=== PATIENT | male | born 1975 | race African-American/Black ===

== ENCOUNTER 2020-03-13 05:10 | Inpatient (IN) ==
[2020-03-13 06:25] LABS: Basophils % 0.5 % (0.0-0.8); Eosinophils # 0.1 10*3/uL (0.0-0.87); Eosinophils % 1.4 % (0.00-10.9); Hemoglobin 11.4 GM/DL (14.0-18.0); Immature Granulocytes % 0.3 %; Immature Granulocytes Absolute 0.02 #; Lymphocytes # 2.2 10*3/uL (1.4-4.0); Lymphocytes % 33.8 % (21.2-54.2); Mean Corpuscular HGB Conc 32.6 GM/DL (32-36); Mean Corpuscular Volume 76.3 FL (87-102); Mean Platelet Volume 8.4 FL (9.6-12.0); Monocytes % 10.2 % (1.7-12.7); Neutrophils % 53.8 % (38.7-73.9); Platelet Count 443 T/CUMM (130-400); Red Blood Count 4.59 MC/CUMM (3.8-5.5); Red Cell Distribution Width 13.2 % (9.3-17.3); White Blood Count 6.5 T/CUMM (4-12)
[2020-03-13] MEDS ORDERED: INSULIN REGULAR 100 UNIT/ML IV ONE ×2 (06:28→06:38)
[2020-03-13] MEDS ORDERED: CLINDAMYCIN INJ 600 MG in PREMIX 1 EACH IV ONE (06:30)
[2020-03-13] MEDS ORDERED: BUPIVACAINE MPF 0.25% 30 ML VIAL ONE (06:39)
[2020-03-13] MEDS ORDERED: LIDOCAINE 1%/EPI INJ 20 ML VIAL ONE (06:39)
[2020-03-13] MEDS: LACTATED RINGERS 1,000 ML IV SCH ×2 (06:45→08:17)
[2020-03-13] MEDS ORDERED: CLINDAMYCIN INJ 50 ML IV ONE (06:53)
[2020-03-13 06:54] LABS: Alanine Aminotransferase 12 U/L (16-61); Albumin 2.5 G/DL (3.4-5.0); Alkaline Phosphatase 112 U/L (45-117); Aspartate Amino Transferase 6 U/L (0-37); Bilirubin,Total < 0.39 MG/DL (0.2-1.0); Blood Urea Nitrogen 21 MG/DL (7-18); Calcium 9.7 MG/DL (8.5-10.1); Estimated Glom Filtration Rate 109 ML/MIN; Glucose 397 MG/DL (74-106); Osmolality,Calculated 283.5 MOS/KG (273-304); Total Protein 8.3 G/DL (6.4-8.3)
[2020-03-13] MEDS ORDERED: LIDOCAINE 1% 20 ML VIAL ONE (06:55)
[2020-03-13] MEDS ORDERED: INSULIN REGULAR 100 UNIT/ML ONE (06:56)
[2020-03-13] MEDS ORDERED: MIDAZOLAM 2 MG/2 ML VIAL ONE (08:46)
[2020-03-13] MEDS ORDERED: SEVOFLURANE 1 UNIT/15 MINUTE INH ONE (08:46)
[2020-03-13] MEDS ORDERED: LIDOCAINE 2% 5 ML VIAL ONE (08:46)
[2020-03-13] MEDS ORDERED: propofoL 200 MG/20 ML VIAL IV ONE (08:46)
[2020-03-13] MEDS ORDERED: fentaNYL 100 MCG/2 ML VIAL ONE (08:46)
[2020-03-13] MEDS ORDERED: PHENYLEPHRINE 1 MG/10 ML SYRINGE IV ONE (08:47)
[2020-03-13] MEDS ORDERED: ONDANSETRON 4 MG/2 ML VIAL ONE (08:47)
[2020-03-13] MEDS ORDERED: GLUCAGON 1 MG VIAL IM PRN (09:35)
[2020-03-13] MEDS ORDERED: ALBUTEROL/IPRATROPIUM 3 ML NEB RESP TX PRN (09:35)
[2020-03-13] MEDS ORDERED: DEXTROSE 10% 250 ML BAG IV PRN (09:35)
[2020-03-13] MEDS ORDERED: ACETAMINOPHEN 325 MG TABLET PO PRN (09:35)
[2020-03-13] MEDS ORDERED: BISACODYL 5 MG TABLET PO PRN (09:35)
[2020-03-13] MEDS: SODIUM CHLORIDE 0.9% 1,000 ML IV SCH ×2 (11:26→18:36)
[2020-03-13] MEDS: PIPERACILLIN/TAZOBACTAM 3,375 MG in SODIUM CHLORIDE 0.9% 100 ML IV SCH ×2 (11:26→18:35)
[2020-03-13] MEDS ORDERED: INSULIN LISPRO 100 UNIT/ML SUBCUT SCH ×2 (12:00→17:00)
[2020-03-13] MEDS: INSULIN LISPRO 100 UNIT/ML SUBCUT SCH ×2 (17:32→20:59)
[2020-03-13] MEDS: metFORMIN 500 MG TABLET PO SCH (17:34)
[2020-03-13] MEDS: GABAPENTIN 300 MG CAPSULE PO SCH (20:58)
[2020-03-13] MEDS ORDERED: INSULIN GLARGINE 100 UNIT/ML SUBCUT SCH ×2 (21:00)
[2020-03-14] MEDS: PIPERACILLIN/TAZOBACTAM 3,375 MG in SODIUM CHLORIDE 0.9% 100 ML IV SCH ×3 (03:08→17:58)
[2020-03-14] MEDS: ENOXAPARIN 40 MG/0.4 ML SYRINGE SUBCUT SCH (03:40)
[2020-03-14] MEDS: SODIUM CHLORIDE 0.9% 1,000 ML IV SCH ×2 (04:56→19:31)
[2020-03-14 05:35] LABS: Basophils % 0.4 % (0.0-0.8); Eosinophils # 0.1 10*3/uL (0.0-0.87); Eosinophils % 1.2 % (0.00-10.9); Hematocrit 30.8 VOL% (42.0-52.0); Hemoglobin 9.8 GM/DL (14.0-18.0); Immature Granulocytes % 0.1 %; Immature Granulocytes Absolute 0.01 #; Lymphocytes # 2.5 10*3/uL (1.4-4.0); Lymphocytes % 32.5 % (21.2-54.2); Mean Corpuscular HGB Conc 31.8 GM/DL (32-36); Mean Corpuscular Volume 78.8 FL (87-102); Mean Platelet Volume 8.6 FL (9.6-12.0); Monocytes % 11.9 % (1.7-12.7); Neutrophils % 53.9 % (38.7-73.9); Platelet Count 421 T/CUMM (130-400); Red Blood Count 3.91 MC/CUMM (3.8-5.5); Red Cell Distribution Width 13.4 % (9.3-17.3); White Blood Count 7.8 T/CUMM (4-12)
[2020-03-14 05:54] LABS: Calcium 8.8 MG/DL (8.5-10.1); Osmolality,Calculated 281.8 MOS/KG (273-304)
[2020-03-14] MEDS: MINOCYCLINE 100 MG CAPSULE PO SCH ×2 (08:09→10:27)
[2020-03-14] MEDS: HYDROmorphone 2 MG/1 ML VIAL IV PRN ×2 (08:57→19:47)
[2020-03-14] MEDS: INSULIN LISPRO 100 UNIT/ML SUBCUT SCH ×5 (08:58→21:48)
[2020-03-14] MEDS: LISINOPRIL/HCTZ 20-25 MG TABLET PO SCH (08:59)
[2020-03-14] MEDS: METOPROLOL SUCCINATE XL 50 MG TABLET PO SCH (08:59)
[2020-03-14] MEDS: PANTOPRAZOLE 40 MG TABLET PO SCH (08:59)
[2020-03-14] MEDS: ASPIRIN 325 MG TABLET PO SCH (08:59)
[2020-03-14] MEDS: metFORMIN 500 MG TABLET PO SCH ×2 (08:59→17:57)
[2020-03-14] MEDS: GABAPENTIN 300 MG CAPSULE PO SCH ×2 (08:59→21:38)
[2020-03-14] MEDS: amLODIPine 10 MG TABLET PO SCH (08:59)
[2020-03-14] MEDS: DULoxetine 30 MG CAPSULE PO SCH (08:59)
[2020-03-14] MEDS: SODIUM HYPOCHLORITE 0.25% IRRIG 473 ML BOTTLE TOP SCH (09:00)
[2020-03-14] MEDS: ONDANSETRON 4 MG/2 ML VIAL IV PRN ×3 (11:41→19:47)
[2020-03-14] MEDS ORDERED: DEXTROSE 10% 250 ML BAG IV PRN (14:02)
[2020-03-14] MEDS: INSULIN GLARGINE 100 UNIT/ML SUBCUT SCH (21:49)
[2020-03-15] MEDS: INSULIN LISPRO 100 UNIT/ML SUBCUT SCH ×9 (00:42→21:51)
[2020-03-15] MEDS: MINOCYCLINE 100 MG CAPSULE PO SCH ×3 (00:43→21:51)
[2020-03-15] MEDS: PIPERACILLIN/TAZOBACTAM 3,375 MG in SODIUM CHLORIDE 0.9% 100 ML IV SCH ×3 (03:32→18:10)
[2020-03-15] MEDS: ENOXAPARIN 40 MG/0.4 ML SYRINGE SUBCUT SCH (05:14)
[2020-03-15] MEDS: GABAPENTIN 300 MG CAPSULE PO SCH ×2 (08:41→20:47)
[2020-03-15] MEDS: METOPROLOL SUCCINATE XL 50 MG TABLET PO SCH (08:41)
[2020-03-15] MEDS: DULoxetine 30 MG CAPSULE PO SCH (08:41)
[2020-03-15] MEDS: PANTOPRAZOLE 40 MG TABLET PO SCH (08:42)
[2020-03-15] MEDS: metFORMIN 500 MG TABLET PO SCH ×2 (08:42→18:10)
[2020-03-15] MEDS: LISINOPRIL/HCTZ 20-25 MG TABLET PO SCH (08:42)
[2020-03-15] MEDS: amLODIPine 10 MG TABLET PO SCH (08:42)
[2020-03-15] MEDS: HYDROmorphone 2 MG/1 ML VIAL IV PRN ×2 (08:46→20:44)
[2020-03-15] MEDS: ONDANSETRON 4 MG/2 ML VIAL IV PRN ×2 (08:46→18:15)
[2020-03-15] MEDS: SODIUM HYPOCHLORITE 0.25% IRRIG 473 ML BOTTLE TOP SCH (08:48)
[2020-03-15] MEDS: ASPIRIN 325 MG TABLET PO SCH (08:48)
[2020-03-15] MEDS: sitaGLIPtin 25 MG TABLET PO SCH (08:54)
[2020-03-15] MEDS ORDERED: glyBURIDE 5 MG TABLET PO SCH (17:00)
[2020-03-15] MEDS: glyBURIDE 5 MG TABLET PO SCH (18:10)
[2020-03-15] MEDS: INSULIN GLARGINE 100 UNIT/ML SUBCUT SCH (20:48)
[2020-03-16] MEDS: PIPERACILLIN/TAZOBACTAM 3,375 MG in SODIUM CHLORIDE 0.9% 100 ML IV SCH ×2 (02:47→11:19)
[2020-03-16] MEDS: ENOXAPARIN 40 MG/0.4 ML SYRINGE SUBCUT SCH (03:45)
[2020-03-16 05:18] LABS: Calcium 8.9 MG/DL (8.5-10.1); Osmolality,Calculated 273.8 MOS/KG (273-304)
[2020-03-16] MEDS ORDERED: MAGNESIUM SULF RIDER 4 GM in PREMIX 1 EACH IV ONE (07:21)
[2020-03-16] MEDS: INSULIN LISPRO 100 UNIT/ML SUBCUT SCH ×4 (08:38→12:21)
[2020-03-16] MEDS: GABAPENTIN 300 MG CAPSULE PO SCH (08:49)
[2020-03-16] MEDS: LISINOPRIL/HCTZ 20-25 MG TABLET PO SCH (08:49)
[2020-03-16] MEDS: DULoxetine 30 MG CAPSULE PO SCH (08:49)
[2020-03-16] MEDS: PANTOPRAZOLE 40 MG TABLET PO SCH (08:50)
[2020-03-16] MEDS: metFORMIN 500 MG TABLET PO SCH (08:50)
[2020-03-16] MEDS: METOPROLOL SUCCINATE XL 50 MG TABLET PO SCH (08:50)
[2020-03-16] MEDS: glyBURIDE 5 MG TABLET PO SCH (08:50)
[2020-03-16] MEDS: amLODIPine 10 MG TABLET PO SCH (08:50)
[2020-03-16] MEDS: ASPIRIN 325 MG TABLET PO SCH (08:50)
[2020-03-16] MEDS: sitaGLIPtin 25 MG TABLET PO SCH (08:50)
[2020-03-16] MEDS: MINOCYCLINE 100 MG CAPSULE PO SCH (08:51)
[2020-03-16] MEDS: SODIUM HYPOCHLORITE 0.25% IRRIG 473 ML BOTTLE TOP SCH (08:59)
[2020-03-16] MEDS ORDERED: MAGNESIUM OXIDE 400 MG TABLET PO SCH (09:00)
[2020-03-16 12:19] VITALS: BP 99/62
== END 2020-03-16 13:26 | disposition home health service (06) | DRG 617 ==
LOC: N.OR 05:10 → N.SDSINP 06:14 → N.3E 09:18
PROVIDERS: ADMIT Surgery; ATTEND Surgery

== ENCOUNTER 2022-06-15 09:30 | Inpatient (IN) ==
[2022-06-15] MEDS ORDERED: VANCOMYCIN INJ 1,750 MG in SODIUM CHLORIDE 0.9% 250 ML IV STA (10:04)
[2022-06-15] MEDS ORDERED: VANCOMYCIN INJ 1,750 MG in SODIUM CHLORIDE 0.9% 500 ML IV STA (10:10)
[2022-06-15 10:30] LABS: Basophils % 0.5 % (0.0-0.8); Eosinophils # 0.3 10*3/uL (0.0-0.87); Eosinophils % 3.4 % (0.00-10.9); Hematocrit 31.9 VOL% (42.0-52.0); Hemoglobin 9.8 GM/DL (14.0-18.0); Immature Granulocytes % 0.4 %; Immature Granulocytes Absolute 0.03 #; Lymphocytes # 1.8 10*3/uL (1.4-4.0); Lymphocytes % 22.9 % (21.2-54.2); Mean Corpuscular HGB Conc 30.7 GM/DL (32-36); Mean Corpuscular Volume 75.2 FL (87-102); Mean Platelet Volume 8.4 FL (9.6-12.0); Monocytes # 0.8 10*3/uL (0.11-0.8); Monocytes % 10.1 % (1.7-12.7); Neutrophils % 62.7 % (38.7-73.9); Platelet Count 489 T/CUMM (130-400); Red Blood Count 4.24 MC/CUMM (3.8-5.5); Red Cell Distribution Width 14.6 % (9.3-17.3)
[2022-06-15 11:13] LABS: Alanine Aminotransferase 14 U/L (16-61); Albumin 2.3 G/DL (3.4-5.0); Alkaline Phosphatase 69 U/L (45-117); Aspartate Amino Transferase 16 U/L (0-37); Bilirubin,Total < 0.39 MG/DL (0.20-1.00); Blood Urea Nitrogen 34 MG/DL (7-18); Calcium 9.2 MG/DL (8.5-10.1); Carbon Dioxide 26 MMOL/L (21-32); Chloride 110 MMOL/L (98-107); Glucose 123 MG/DL (74-106); Osmolality,Calculated 285.5 MOS/KG (273-304); Potassium 4.6 MMOL/L (3.5-5.1); Sodium 139 MMOL/L (136-145); Total Protein 8.1 G/DL (6.4-8.2)
[2022-06-15] MEDS ORDERED: ONDANSETRON 4 MG/2 ML VIAL IV PRN (11:57)
[2022-06-15] MEDS ORDERED: ACETAMINOPHEN 325 MG TABLET PO PRN (11:57)
[2022-06-15] MEDS ORDERED: GLUCAGON 1 MG VIAL IM PRN ×2 (11:57→13:27)
[2022-06-15] MEDS ORDERED: DEXTROSE 10% 250 ML BAG IV PRN (12:00)
[2022-06-15] MEDS: LACTATED RINGERS 1,000 ML IV SCH (12:24)
[2022-06-15] MEDS ORDERED: LISINOPRIL/HCTZ 20-25 MG TABLET PO SCH (13:26)
[2022-06-15] MEDS ORDERED: DEXTROSE 50% 25 GM/50 ML VIAL IV PRN (13:27)
[2022-06-15] MEDS ORDERED: hydrALAZINE 20 MG/1 ML VIAL IV PRN (13:27)
[2022-06-15 14:05] LABS: Bacteria,Urine Occasional /HPF (Few); RBC,Urine 4 /HPF (0-4); Squamous Epithelial Cell,Urine Occasional /HPF (0-10); Urine Appearance Clear (Clear); Urine Color Yellow (Yellow); Urine pH 5.5 (4.5-8.0)
[2022-06-15 14:06] LABS: Bilirubin,Urine Negative (Negative); Blood, Urine Small mg/dL (Negative); Glucose,Urine (UA) Negative (Negative); Ketones,Urine Negative (Negative); Nitrite,Urine Negative (Negative); Protein,Urine >=300 mg/dL (Negative); Urine Urobilinogen 0.2 eU/dL (<2.0)
[2022-06-15] MEDS ORDERED: HYDROmorphone 1 MG/1 ML SYRINGE IV PRN ×2 (14:36)
[2022-06-15] MEDS: minoxidiL 2.5 MG TABLET PO SCH (15:50)
[2022-06-15] MEDS: INSULIN LISPRO 100 UNIT/ML SUBCUT SCH ×2 (15:52→21:31)
[2022-06-15] MEDS: VANCOMYCIN INJ 1,750 MG in SODIUM CHLORIDE 0.9% 250 ML IV SCH (16:06)
[2022-06-15] MEDS: VERAPAMIL SR 120 MG TABLET PO SCH (21:28)
[2022-06-15] MEDS: ATORVASTATIN 20 MG TABLET PO SCH (21:29)
[2022-06-15] MEDS: GABAPENTIN 600 MG TABLET PO SCH (21:29)
[2022-06-15] MEDS: LABETALOL 200 MG TABLET PO SCH (21:29)
[2022-06-16] MEDS: LACTATED RINGERS 1,000 ML IV SCH ×4 (03:15→20:13)
[2022-06-16 06:19] LABS: Basophils % 0.5 % (0.0-0.8); Eosinophils # 0.3 10*3/uL (0.0-0.87); Eosinophils % 3.7 % (0.00-10.9); Hematocrit 28.1 VOL% (42.0-52.0); Hemoglobin 8.7 GM/DL (14.0-18.0); Immature Granulocytes % 0.4 %; Immature Granulocytes Absolute 0.03 #; Lymphocytes # 1.7 10*3/uL (1.4-4.0); Lymphocytes % 22.4 % (21.2-54.2); Mean Corpuscular Volume 75.3 FL (87-102); Mean Platelet Volume 8.4 FL (9.6-12.0); Monocytes # 0.8 10*3/uL (0.11-0.8); Monocytes % 10.8 % (1.7-12.7); Neutrophils % 62.2 % (38.7-73.9); Platelet Count 499 T/CUMM (130-400); Red Blood Count 3.73 MC/CUMM (3.8-5.5); Red Cell Distribution Width 14.6 % (9.3-17.3); White Blood Count 7.8 T/CUMM (4-12)
[2022-06-16 06:33] LABS: Calcium 8.5 MG/DL (8.5-10.1); Osmolality,Calculated 292.1 MOS/KG (273-304); Potassium 4.8 MMOL/L (3.5-5.1)
[2022-06-16 06:46] LABS: Risk Ratio 5.45
[2022-06-16] MEDS: INSULIN LISPRO 100 UNIT/ML SUBCUT SCH ×4 (07:29→21:04)
[2022-06-16] MEDS ORDERED: ETOMIDATE 40 MG/20 ML VIAL IV ONE (09:13)
[2022-06-16] MEDS ORDERED: propofoL 200 MG/20 ML VIAL IV ONE ×2 (09:13)
[2022-06-16] MEDS ORDERED: MIDAZOLAM 2 MG/2 ML VIAL ONE (09:20)
[2022-06-16] MEDS ORDERED: fentaNYL 100 MCG/2 ML VIAL ONE (09:20)
[2022-06-16] MEDS ORDERED: SODIUM CHLORIDE 0.9% 250 ML IV ONE (09:59)
[2022-06-16 10:45] LABS: % Iron Saturation 12.3 % (18-50)
[2022-06-16] MEDS ORDERED: GLUCAGON 1 MG VIAL IM PRN (11:37)
[2022-06-16] MEDS ORDERED: DEXTROSE 50% 25 GM/50 ML VIAL IV PRN (11:37)
[2022-06-16] MEDS: PANTOPRAZOLE 40 MG TABLET PO SCH (11:53)
[2022-06-16] MEDS: GABAPENTIN 600 MG TABLET PO SCH ×2 (11:53→21:03)
[2022-06-16] MEDS: minoxidiL 2.5 MG TABLET PO SCH (11:53)
[2022-06-16] MEDS: LABETALOL 200 MG TABLET PO SCH ×2 (11:54→21:03)
[2022-06-16] MEDS: CEFEPIME 1,000 MG in SODIUM CHLORIDE 0.9% 100 ML IV SCH ×3 (11:54→21:01)
[2022-06-16] MEDS: VANCOMYCIN INJ 1,750 MG in SODIUM CHLORIDE 0.9% 250 ML IV SCH (12:17)
[2022-06-16] MEDS: VERAPAMIL SR 120 MG TABLET PO SCH (21:03)
[2022-06-16] MEDS: ATORVASTATIN 20 MG TABLET PO SCH (21:04)
[2022-06-17] MEDS: CEFEPIME 1,000 MG in SODIUM CHLORIDE 0.9% 100 ML IV SCH ×3 (02:59→15:03)
[2022-06-17] MEDS: VANCOMYCIN INJ 1,750 MG in SODIUM CHLORIDE 0.9% 250 ML IV SCH (04:34)
[2022-06-17 07:08] LABS: Basophils % 0.4 % (0.0-0.8); Eosinophils # 0.3 10*3/uL (0.0-0.87); Eosinophils % 3.7 % (0.00-10.9); Hematocrit 25.7 VOL% (42.0-52.0); Hemoglobin 7.9 GM/DL (14.0-18.0); Immature Granulocytes % 0.4 %; Immature Granulocytes Absolute 0.03 #; Lymphocytes # 1.8 10*3/uL (1.4-4.0); Lymphocytes % 22.6 % (21.2-54.2); Mean Corpuscular HGB Conc 30.7 GM/DL (32-36); Mean Corpuscular Volume 75.1 FL (87-102); Mean Platelet Volume 8.3 FL (9.6-12.0); Monocytes # 0.9 10*3/uL (0.11-0.8); Monocytes % 10.8 % (1.7-12.7); Neutrophils % 62.1 % (38.7-73.9); Platelet Count 462 T/CUMM (130-400); Red Blood Count 3.42 MC/CUMM (3.8-5.5); Red Cell Distribution Width 14.7 % (9.3-17.3); White Blood Count 8.1 T/CUMM (4-12)
[2022-06-17 07:31] LABS: Calcium 8.5 MG/DL (8.5-10.1); Potassium 4.8 MMOL/L (3.5-5.1)
[2022-06-17] MEDS: INSULIN LISPRO 100 UNIT/ML SUBCUT SCH ×2 (07:34→12:32)
[2022-06-17] MEDS: PANTOPRAZOLE 40 MG TABLET PO SCH (08:58)
[2022-06-17] MEDS: minoxidiL 2.5 MG TABLET PO SCH (08:59)
[2022-06-17] MEDS: GABAPENTIN 600 MG TABLET PO SCH (09:00)
[2022-06-17] MEDS ORDERED: CHOLECALCIFEROL 5,000 UNIT TABLET PO SCH (09:00)
[2022-06-17] MEDS ORDERED: FERRIC GLUCONATE COMPLEX 125 MG in SODIUM CHLORIDE 0.9% 100 ML IV SCH (09:00)
[2022-06-17] MEDS: LABETALOL 200 MG TABLET PO SCH (09:01)
[2022-06-17 12:33] VITALS: BP 127/70
[2022-06-17] MEDS: LACTATED RINGERS 1,000 ML IV SCH ×2 (12:45→15:04)
[2022-06-17] MEDS ORDERED: SODIUM HYPOCHLORITE 0.25% IRRIG 473 ML BOTTLE TOP SCH (13:00)
== END 2022-06-17 16:13 | disposition home health service (06) | DRG 617 ==
LOC: N.ED 09:30 → N.EDINP 11:57 → N.5E 13:02
PROVIDERS: ADMIT Surgery; ATTEND Surgery